=== PATIENT | male | born 1980 | race Caucasian/White ===

== ENCOUNTER 2021-07-31 11:51 | Outpatient (CLI) | payer OTHER, SELFPAY ==
--- NOTE | ~2021-07-31 | XR_ITS ---
XR chest 2V DATE: 07/31/2021 12:32 INDICATION: Shortness of breath. History of smoking. TECHNIQUE: PA and lateral views COMPARISON: None FINDINGS: Normal heart size. No hilar or mediastinal enlargement. No pulmonary infiltrate or consolid ation, pleural effusion or pulmonary vascular congestion or pneumothorax. Included skeletal structures are unremarkable. IMPRESSION: Negative Reviewed, dictated and finalized at location B. IMPRESSION: Negative
--- NOTE | 2021-07-31 12:37 | ECG_ITS ---
Measurements Intervals [place] Rate: 55 P: 34 DC: 148 QRS: -22 QRSD: 90 T: 23 QT: 374 QTc: 359 Interpretive Statements SINUS BRADYCARDIA DELAYED PRECORDIAL R/S TRANSITION BASELINE ARTIFACT- I, II, III, AVR, AVF, V3-V6 BORDERLINE ECG Electronically Signed On 07-31-2021 13:10:56 CDT by Charan Ramirez D.O.
== END 2021-07-31 11:52 | disposition home or self-care (01) ==
LOC: ANHIMG 11:58
PROVIDERS: PCP Family Medicine; Visit Provider Nurse Practitioner Family
DX: R06.02 Shortness of breath (principal); R42 Dizziness and giddiness; R94.31 Abnormal electrocardiogram [ECG] [EKG]
CPT/HCPCS: 71046; 93005

== ENCOUNTER 2021-08-15 09:30 | Outpatient (CLI) | payer OTHER, SELFPAY ==
--- NOTE | 2021-08-15 09:43 | EST_ITS ---
Patient Info Name: Margarito Schaefer Age: 41 years : 1980 Gender: Male Ht: 70 in Wt: 225 lbs BSA: 2.28 m2 HR: 66 bpm BP: 124 / 73 mmHg Heart Rhythm: Sinus Rhythm Exam Date: 08/15/2021 9:53 AM Exam Location: [facility] Stress Patient Status: Outpatient Admit Date: 08/15/2021 Staff Ordering Physician: Raza Savage NP Attending Provider: Raza Savage NP Exercise Technologist: Otilia Simeon CT Exercise Physician: Charan Ramirez DO Exam Type: CA stress test treadmill Study Info Indications R00.1 - Bradycardia, unspecified An exercise stress test was performed. Summary 1. 1. Negative [place] exercise stress test for ischemic ST changes by ECG criteria. 2. 2. Good functional capacity, achieving 11.5 METs of workload. 3. 3. Appropriate HR response to exercise. 4. 4. Appropriate HR recovery at 1 minute post exercise. 5. 5. No imaging with stress testing. 6. 6. Patient informed of the above results. Protocol: [place] Stress ECG Details Stage: REST Duration (min): 1 min : 9 sec Speed (mph): 0.0 Grade (%): 0 HR (bpm): 61 SBP (mmHg): 124 DBP (mmHg): 73 METS: --- Stage: REST Duration (min): 5 min : 54 sec Speed (mph): 0.0 Grade (%): 0 HR (bpm): 70 SBP (mmHg): 124 DBP (mmHg): 73 METS: --- Stage: STAGE 1 Duration (min): 1 min : 0 sec Speed (mph): 1.7 Grade (%): 10 HR (bpm): 97 SBP (mmHg): 124 DBP (mmHg): 73 METS: --- Stage: STAGE 1 Duration (min): 2 min : 0 sec Speed (mph): 1.7 Grade (%): 10 HR (bpm): 101 SBP (mmHg): 124 DBP (mmHg): 73 METS: --- Stage: STAGE 1 Duration (min): 3 min : 0 sec Speed (mph): 1.7 Grade (%): 10 HR (bpm): 107 SBP (mmHg): 164 DBP (mmHg): 79 METS: --- Stage: STAGE 2 Duration (min): 1 min : 0 sec Speed (mph): 2.5 Grade (%): 12 HR (bpm): 112 SBP (mmHg): 164 DBP (mmHg): 79 METS: --- Stage: STAGE 2 Duration (min): 2 min : 0 sec Speed (mph): 2.5 Grade (%): 12 HR (bpm): 122 SBP (mmHg): 139 DBP (mmHg): 57 METS: --- Stage: STAGE 2 Duration (min): 3 min : 0 sec Speed (mph): 2.5 Grade (%): 12 HR (bpm): 132 SBP (mmHg): 157 DBP (mmHg): 60 METS: --- Stage: STAGE 3 Duration (min): 1 min : 0 sec Speed (mph): 3.4 Grade (%): 14 HR (bpm): 140 SBP (mmHg): 166 DBP (mmHg): 59 METS: --- Stage: STAGE 3 Duration (min): 2 min : 0 sec Speed (mph): 3.4 Grade (%): 14 HR (bpm): 137 SBP (mmHg): 166 DBP (mmHg): 59 METS: --- Stage: STAGE 3 Duration (min): 3 min : 0 sec Speed (mph): 3.4 Grade (%): 14 HR (bpm): 146 SBP (mmHg): 220 DBP (mmHg): 92 METS: --- Stage: STAGE 4 Duration (min): 0 min : 47 sec Speed (mph): 4.2 Grade (%): 16 HR (bpm): 157 SBP (mmHg): 220 DBP (mmHg): 92 METS: ---
== END 2021-08-15 09:31 | disposition home or self-care (01) ==
PROVIDERS: PCP Family Medicine; Visit Provider Nurse Practitioner Family
DX: R00.1 Bradycardia, unspecified (principal)
CPT/HCPCS: 93017